=== PATIENT | female | born 1990 | race Caucasian/White ===

== ENCOUNTER 2020-01-02 11:43 | Emergency (ER) | payer OTHER ==
--- OUTSIDE RECORDS SUMMARY | 2020-01-02 11:47 | XMS REPORT | Continuity of Care Document ---
:1990 Author Organization [facility] t Address [address] [place] [address] Care Team Providers Name Role Phone Unavailable Unavailable Unavailable Problems Condition Condition Condition Status Onset Resolution Last Treating Co mments Source Name Details Category Date Date Treatment Clinician Date Mental Mental Problem Active [facility] retardatio Gladys kes - n n [facility] Allergic Allergic Problem [facility] Hordeolum Hordeolum Diagnosis Active [facility] externum externum [facility] - left upper left upper Me moria eyelid eyelid l [facility] Allergies, Adverse Reactions, Alerts This patient has no known allergies or adverse reactions. Medications Ordered Filled Start Stop Current Ordering Indication Dosage Frequency Signature Comments Components Source Medication Medication Date Date Medication? Clinician (SIG) Name Name Erythromyci Erythromyci 2018-03- No Darin [address] [facility] n 12-11 Perez applicatio [facility] - 00:[facility]: 00:00 n to [facility] 00 :00 affected [facility] eye [facility] Bacitracin Bacitracin 2018-03- No Darin [address] [facility] 012-01 Perez applicatio [facility] - 00:[facility]: 00:00 n to [facility] 00 :00 affected l area Outpati ent Clinics Procedures This patient has no known procedures. Encounters Start End Encounter Admission Attending Care Care Encounter Source Date/Time Date/Time Type Type Clinicians Facility Department ID 2018-12-01 2018-12-01 Outpatient Mary Smith [id number] [facility] 09:58:00 09:58:00 t [facility] 2018-11-30 2018-11-30 Outpatient Mary Hernandezt [id number] [facility] 15:45:00 15:45:00 [facility] Clin[facility] Results This patient has no known results.
[2020-01-02 12:40] LABS: Urine Blood 1+ (NEG); Urine Glucose NEGATIVE (NEG); Urine Protein NEGATIVE (NEG); Urine Specific Gravity 1.015 (1.005-1.030); Urine pH 6.5 (5.0-7.0)
[2020-01-02 12:57] LABS: Urine Bacteria >50 /HPF (<20); Urine Culture Reflex Order NOT NEEDED; Urine RBC >50 /HPF (NONE SEEN); Urine White Blood Cell Casts 0-5 /LPF (NONE SEEN)
--- NOTE | 2020-01-02 13:03 | EDPHYS ---
Physician Documentation [facility] Name: Claire Pritchard Age: 29 yrs Sex: Female : 1990 Arrival Date: 01/02/2020 Time: 11:50 Bed 13 Private MD: ED Physician Ranjit Ortiz HPI: 01/01 12:32 This 29 yrs old Female presents to ER via Ambulatory with complaints of jr8 Urinary Problem. 12:32 The patient presents with urinary symptoms, dysuria. Onset: The symptoms/episode jr8 began/occurred acutely, yesterday. Modifying factors: The symptoms are alleviated by nothing, the symptoms are aggravated by urinating. Associated signs and symptoms: Pertinent positives: low back pain. Severity of symptoms: At their worst the symptoms were mild, in the emergency department the symptoms are unchanged. The patient has not experienced similar symptoms in the past. The patient has not recently seen a physician. Historical: - Allergies: 11:56 No Known Allergies; sv - PSHx: 11:56 None; sv - Immunization history:: Adult Immunizations up to date. - Social history:: Smoking status: Patient denies any tobacco usage or history of. ROS: 12:32 Eyes: Negative for injury, pain, redness, and discharge, ENT: Negative for injury, jr8 pain, and discharge, Neck: Negative for injury, pain, and swelling, Cardiovascular: Negative for chest pain, palpitations, and edema, Respiratory: Negative for shortness of breath, cough, wheezing, and pleuritic chest pain, Abdomen/GI: Negative for abdominal pain, nausea, vomiting, diarrhea, and constipation, Back: Negative for injury and pain, MS/Extremity: Negative for injury and deformity, Skin: Negative for injury, rash, and discoloration, Neuro: Negative for headache, weakness, numbness, tingling, and seizure. 12:32 : Positive for urinary symptoms, vaginal itching. Exam: 12:32 Constitutional: This is a well developed, well nourished patient who is awake, alert, jr8 and in no acute distress. Cardiovascular: Regular rate and rhythm with a normal S1 and S2. No gallops, murmurs, or rubs. Normal PMI, no JVD. No pulse deficits. Respiratory: Lungs have equal breath sounds bilaterally, clear to auscultation and percussion. No rales, rhonchi or wheezes noted. No increased work of breathing, no retractions or nasal flaring. Back: No spinal tenderness. No costovertebral tenderness. Full range of motion. Skin: Warm, dry with normal turgor. Normal color with no rashes, no lesions, and no evidence of cellulitis. MS/ Extremity: Pulses equal, no cyanosis. Neurovascular intact. Full, normal range of motion. Neuro: Awake and alert, GCS 15, oriented to person, place, time, and situation. Cranial nerves II-XII grossly intact. Motor strength 5/5 in all extremities. Sensory grossly intact. Cerebellar exam normal. Normal gait. 12:32 Abdomen/GI: Inspection: obese Bowel sounds: active, Palpation: soft, in all quadrants, mild abdominal tenderness, in the suprapubic area, mass, is not appreciated, rebound tenderness, is elicited in all quadrants, voluntary guarding, is not appreciated, involuntary guarding, is not appreciated, no appreciated organomegaly, Indicators: McBurney's point is not tender, Abarca's sign is negative, Rovsing's sign is negative, Liver: tenderness, is not appreciated. Vital Signs: 11:55 BP 132 / 78; Pulse 92; Resp 16; Temp 99.7; Pulse Ox 100% on R/A; Pain 4/10; sv MDM: 12:18 Patient medically screened. [facility] 13:02 Data reviewed: vital signs, nurses notes, lab test result(s), and as a result, I will jr8 discharge patient. Data interpreted: Pulse oximetry: on room air is 100 %. Interpretation: normal. Counseling: I had a detailed discussion with the patient and/or guardian regarding: the historical points, exam findings, and any diagnostic results supporting the discharge/admit diagnosis, lab results, the need for outpatient follow up, a family practitioner, to return to the emergency department if symptoms worsen or persist or if there are any questions or concerns that arise at home. 01/01 12:15 Order name: Urine Culture ph 01/01 12:15 Order name: Urine Microscopic Only; Complete Time: 13:02 ph 01/01 12:15 Order name: Urine Dipstick-Ancillary (obtain specimen); Complete Time: 12:16 ph 01/01 12:19 Order name: Urine Dipstick--Ancillary (enter results); Complete Time: 13:02 bd 01/01 12:19 Order name: Urine --Ancillary (enter results); Complete Time: 13:02 bd Administered Medications: No medications were administered Point of Care Testing: Urine : 12:12 hCG Reading: Negative; Control Reading: Positive; jp3 Disposition: 14:22 Co-signature as Attending Physician, Ranjit Ortiz MD I agree with the assessment and vasiliy plan of care. Disposition: 01/02/20 13:03 Discharged to Home. Impression: Acute cystitis with hematuria. - Condition is Stable. - Discharge Instructions: Urinary Tract Infection, Adult. - Prescriptions for Pyridium 200 mg Oral Tablet - take 1 tablet by ORAL route every 8 hours for 3 days; 9 tablet. Bactrim DS 800- 160 mg Oral Tablet - take 1 tablet by ORAL route every 12 hours for 7 days; 14 tablet. - Medication Reconciliation Form, Thank You Letter, Antibiotic Education, Prescription Opioid Use form. - Follow up: Private Physician; When: 1 week; Reason: Recheck today's complaints, Continuance of care, Re-evaluation by your physician. - Problem is new. - Symptoms have improved. Signatures: Dispatcher [employer] EDAllyssa Ott, RN Ranjit Tan MD MD cha Roszak, Josh, PA PA jr8 Tamanna John RN RN Sona Ledesma RN RN zb Corrections: (The following items were deleted from the chart) 13:16 13:03 01/02/2020 13:03 Discharged to Home. Impression: Acute cystitis with hematuria. zb Condition is Stable. Forms are Medication Reconciliation Form, Thank You Letter, Antibiotic Education, Prescription Opioid Use. Follow up: Private Physician; When: 1 week; Reason: Recheck today's complaints, Continuance of care, Re-evaluation by your physician. Problem is new. Symptoms have improved. jr8
--- NOTE | 2020-01-02 13:03 | ER ---
Nurse's Notes [facility] Name: Claire Pritchard Age: 29 yrs Sex: Female : 1990 Arrival Date: 01/02/2020 Time: 11:50 Bed 13 Private MD: Diagnosis: Acute cystitis with hematuria Presentation: 01/01 11:55 Chief complaint: Suprapubic pain and burning with urination x 2 days. Coronavirus sv screen: At this time, the client does not indicate any symptoms associated with coronavirus-19. Ebola Screen: No symptoms or risks identified at this time. Initial Sepsis Screen: Does the patient meet any 2 criteria? HR > 90 bpm. No. Patient's initial sepsis screen is negative. Does the patient have a suspected source of infection? No. Patient's initial sepsis screen is negative. Risk Assessment: Do you want to hurt yourself or someone else? Patient reports no desire to harm self or others. Onset of symptoms was December 31, 2019. 11:55 Method Of Arrival: Ambulatory sv 11:55 Acuity: GLORIA 4 sv Historical: - Allergies: 11:56 No Known Allergies; sv - PSHx: 11:56 None; sv - Immunization history:: Adult Immunizations up to date. - Social history:: Smoking status: Patient denies any tobacco usage or history of. Screenin:09 Abuse screen: Denies threats or abuse. Denies injuries from another. Nutritional zb screening: No deficits noted. Tuberculosis screening: No symptoms or risk factors identified. Fall Risk None identified. Assessment: 12:05 General: Appears in no apparent distress. comfortable, well groomed, Behavior is calm, zb cooperative, appropriate for age, Denies fever, feeling ill, fatigue, chills. Pain: Complains of pain in groin, right femoral area and left femoral area Pain does not radiate. Pain currently is 3 out of 10 on a pain scale. Quality of pain is described as burning, aching, Pain began 1 day ago. Is continuous, Aggravated by peeing. Neuro: No deficits noted. Level of Consciousness is awake, alert, obeys commands, Oriented to person, place, time. Cardiovascular: No deficits noted. Capillary refill < 3 seconds in bilateral fingers. Respiratory: No deficits noted. Airway is patent Trachea midline Respiratory effort is even, unlabored. GI: Abdomen is round obese. : Reports burning with urination, pain urgency, urinary frequency, since yesterday Denies discharge. EENT: No deficits noted. Derm: Skin is intact, is healthy with good turgor. Musculoskeletal: Circulation, motion, and sensation intact. 12:10 Reassessment: pt states that yesterday she started to experience urgency, frequency and zb burning with urination. pt stated she started taking "AZO" pills yesterday and has took one this morning. patient states the medication hasn't worked. denies fever, chills, vaginal discharge. Vital Signs: 11:55 BP 132 / 78; Pulse 92; Resp 16; Temp 99.7; Pulse Ox 100% on R/A; Pain 4/10; sv ED Course: 11:50 Patient arrived in ED. mr 11:56 Triage completed. sv 11:56 Arm band placed on. sv 11:58 Sona Velázquez RN is Primary Nurse. zb 12:09 Patient has correct armband on for positive identification. Bed in low position. Call zb light in reach. Side rails up X 1. Door closed. Noise minimized. Warm blanket given. Head of bed. 12:10 Urine collected: clean catch specimen, cloudy, luisito colored. jp3 12:18 [facility] jrCarmelina 12:18 Ranjit Ortiz MD is Attending Physician. jr8 Administered Medications: No medications were administered Point of Care Testing: Urine : 12:12 hCG Reading: Negative; Control Reading: Positive; jp3 Outcome: 13:03 Discharge ordered by . jrCarmelina 13:16 Patient left the ED. zb Addendum: 01/04/2020 08:35 Addendum: Culture Results: Positive urine culture. No further action required. Bacteria s s sensitive to prescribed antibiotic. Signatures: Allyssa Weir, DARWIN grissom Karyn Abbasi mr Alma Lopez RN RN Wilfredo Nation PA PA jr8 Pisarski, Jacob jp3 Sona Velázquez RN RN zb
[2020-01-02 13:43] VITALS: BP 132/78; TEMP 99.7; O2SAT 100
== END 2020-01-02 13:16 | disposition home or self-care (01) ==
LOC: ER 11:43
DX: N30.01 Acute cystitis with hematuria (principal)
CPT/HCPCS: 81003; 81015; 81025; 87077; 87086; 87088; 87186; 99283